=== PATIENT | male | born 1995 | race Hispanic/Latino ===

== ENCOUNTER 2017-02-15 21:27 | Emergency (ER) | payer OTHER ==
[~2017-02-15] VITALS: Ht 172.7 cm; Wt 93.2 kg
[2017-02-15] MEDS ORDERED: IBUPROFEN600 MG PO (22:00)
[2017-02-15] MEDS ORDERED: ORPHENADRINE100 MG PO (22:00)
[2017-02-15 22:39] VITALS: BP 150/83
== END 2017-02-15 22:40 | disposition home or self-care (01) | DRG 563 ==
LOC: ED 21:27
DX: S46.811A Strain of other muscles, fascia and tendons at shoulder and upper arm level, right arm, initial encounter (principal); X50.0XXA Overexertion from strenuous movement or load, initial encounter; Y93.89 Activity, other specified; Y92.89 Other specified places as the place of occurrence of the external cause